=== PATIENT | female | born 1980 | race Caucasian/White ===

== ENCOUNTER 2017-05-12 10:52 | Inpatient (IN) | payer OTHER ==
[2017-05-12] MEDS ORDERED: NORMOSOL-R PH 7.4 1,000 ML IV SCH ×2 (12:00→15:00)
[2017-05-12] MEDS ORDERED: PITOCin/NS 30 UNIT/500ML 30 UNITS/500 ML BAG IV SCH ×2 (12:00→15:00)
[2017-05-12 13:01] LABS: Basophils % (Auto) 0.3 % (0.0-1.8); Eosinophils # (Auto) 0.1 K/mm3 (0.0-0.4); Eosinophils % (Auto) 0.5 % (0.0-4.3); Hematocrit 33.2 % (30.3-42.9); Hemoglobin 10.8 gm/dl (10.1-14.3); Lymphocytes # (Auto) 1.3 K/mm3 (1.2-5.4); Lymphocytes % (Auto) 11.9 % (13.4-35.0); Mean Corpuscular HGB Conc 33 % (30-34); Mean Corpuscular Hemoglobin 32 pg (28-32); Mean Corpuscular Volume 99 fl (79-97); Monocytes # (Auto) 0.6 K/mm3 (0.0-0.8); Monocytes % (Auto) 5.7 % (0.0-7.3); Platelet Count 178 K/mm3 (140-440); Red Blood Count 3.35 M/mm3 (3.65-5.03); Red Cell Distribution Width 15.1 % (13.2-15.2)
[2017-05-12] MEDS ORDERED: PITOCin/NS 20 UNIT/1000ML DRIP 20,000 MILLIUNITS/1,000 ML BAG IV ONE (13:18)
[2017-05-12] MEDS: STADOL IV PRN ×2 (13:26→15:32)
[2017-05-12] MEDS ORDERED: BRETHINE SUB-Q PRN (14:52)
[2017-05-12] MEDS ORDERED: XYLOCAINE 2% INFILTRATI ONE (14:52)
[2017-05-12] MEDS ORDERED: MINERAL OIL PO PRN (14:52)
[2017-05-12] MEDS ORDERED: BRETHINE IVP PRN (14:52)
--- NOTE | 2017-05-12 14:59 | History and Physical Report ---
History of Present Illness Date of examination: 05/12/17 Date of admission: 05/12/17 12:53 Chief complaint: Intense labor Pains History of present illness: Early entry to care at [facility], RH Negative; Receoved Rhogmaritza on 03/10/2017. course also complicated by Asymptomatic Anemia, taking FeSO4. Past History Past Medical History: no pertinent history Past Surgical History: no surgical history Family/Genetic History: none Social history: no significant social history - Obstetrical History Expected Date of Delivery: 05/23/17 Actual Gestation: 38 Week(s) 3 Day(s) : 6 Para: 5 Hx # Term Pregnancies: 5 Number of Living Children: 5 #1 Infant Gender: Female year: 1,[birth year] Birthweight: 2.722 kg Method of Delivery: Vaginal Gestational age at delivery: 40 Complications: none #2 Gender: Male year: 1,[birth year] Birthweight: 3.175 kg Method of Delivery: Vaginal Gestational age at delivery: 40 #3 Infant Gender: Male year: 2,[birth year] Birthweight: 3.827 kg Method of Delivery: Vaginal Gestational age at delivery: 40 Complications: none #4 Gender: Male year: 2,[birth year] Birthweight: 3.175 kg Method of Delivery: Vaginal Gestational age at delivery: 40 Complications: none #5 Gender: Male year: 2,011 Birthweight: 3.629 kg Method of Delivery: Vaginal Gestational age at delivery: 40 Complications: none Medications and Allergies Allergies Allergy/AdvReac Type Severity Reaction Status Date / Time No Known Allergies Allergy Unverified 05/12/17 11:37 Home Medications Medication Instructions Recorded Confirmed Last Taken Type No Known Home Medications [No 05/12/17 05/12/17 Unknown History Reported Home Medications] Active Meds: Active Medications Butorphanol Tartrate (Stadol) 2 mg IV Q2H PRN PRN Reason: Labor Pain Last Admin: 05/12/17 13:26 Dose: 2 mg Parenteral Electrolytes (Normosol-R Ph 7.4) 1,000 mls @ 125 mls/hr IV DIRECT DONOVAN Last Admin: 05/12/17 13:26 Dose: 125 mls/hr Oxytocin/Sodium Chloride (Pitocin/Ns 30 Unit/500ml) 30 units in 500 mls @ 4 mls /hr IV TITR DONOVAN; Protocol Last Titration: 05/12/17 14:35 Dose: 8 milliunits/min, 8 mls/hr Parenteral Electrolytes (Normosol-R Ph 7.4) 1,000 mls @ 125 mls/hr IV DIRECT DONOVAN Oxytocin/Sodium Chloride (Pitocin/Ns 30 Unit/500ml) 30 units in 500 mls @ 1 mls /hr IV TITR DONOVAN; Protocol Lidocaine (Xylocaine 2%) 20 ml INFILTRATI ONCE ONE Stop: 05/12/17 14:53 Mineral Oil (Mineral Oil) 30 ml PO QHS PRN PRN Reason: Constipation Terbutaline Sulfate (Brethine) 0.25 mg SUB-Q ONCE PRN PRN Reason: Hyperstimulation/Hypertonicity Terbutaline Sulfate (Brethine) 0.25 mg IVP ONCE PRN PRN Reason: Hyperstimulation/Hypertonicity Review of Systems All systems: negative - Vital Signs Vital signs: Vital Signs Pulse BP 85 102/66 05/12/17 11:15 05/12/17 11:15 Temp Pulse Resp BP Pulse Ox 100 H 109/57 05/12/17 14:40 05/12/17 14:40 - Physical Exam Breasts: Positive: normal Cardiovascular: Regular rate Lungs: Positive: Clear to auscultation, Normal air movement Abdomen: Positive: normal appearance, soft, normal bowel sounds Genitourinary (Female): Positive: normal external genitalia, normal perenium Vagina: Positive: normal moisture Uterus: Positive: enlarged Anus/Rectum: Positive: normal perianal skin Extremities: Positive: normal - Obstetrical FHR: category 1 Uterine Contraction Monitor Mode: External Cervical Dilatation: 5 (Scant amount of bloody fluid upon AROM at 1446) Cervical Effacement Percentage: 70 station: -1 Uterine Contraction Pattern: Regular Uterine Tone Measurement Phase: Resting Uterine Contraction Intensity: Moderate Results Result Diagrams: 05/12/17 11:55 Abnormal lab results 05/12/17 Range/Units 11:55 WBC 11.2 H (4.5-11.0) K/mm3 RBC 3.35 L (3.65-5.03) M/mm3 MCV 99 H (79-97) fl Lymph % (Auto) 11.9 L (13.4-35.0) % Seg Neutrophils % 81.6 H (40.0-70.0) % Seg Neutrophils # 9.1 H (1.8-7.7) K/mm3 All other labs normal. Assessment and Plan A: IUP @38 3/7 Weeks Active Labor Category I Tracing GBS Negative P: Admit to L&D per Routine Orders Pitocin Augmentation AROM
[2017-05-12] MEDS ORDERED: METHERGINE IM ONE (16:17)
[2017-05-12] MEDS ORDERED: CYTOTEC ONE (16:18)
[2017-05-12] MEDS ORDERED: LANSINOH TP PRN (16:34)
[2017-05-12] MEDS ORDERED: MILK OF MAGNESIA PO PRN (16:34)
[2017-05-12] MEDS ORDERED: PHENERGAN PR PRN (16:34)
[2017-05-12] MEDS ORDERED: TUCKS PAD TP PRN (16:34)
--- NOTE | 2017-05-12 16:48 | Procedure Note ---
OB Delivery Note - Delivery Date of Delivery: 05/12/17 (1616) Surgeon: BAMBI SANCHEZ Estimated blood loss: 500cc - Vaginal Delivery presentation: vertex Delivery position: OA Intrapartum events: precipitous labor- <3hr, hemorrhage Delivery induction: none Delivery augmentation: rupture of membranes, pitocin Delivery monitor: external FHT, external uterine Route of delivery: Delivery placenta: spontaneous Delivery cord: 3 umbilical vessels Episiotomy: none Delivery laceration: none Anesthesia: none Delivery comments: Precipitous vaginal delivery attended by Inés Price RN, of a live 8'10 female infant over a intact perinuem under IV pain control with Apgars of 8 and 9 at 1616 on 05/12/2017. directly to maternal abd/chest, skin to skin contact. Immediately after delivery prior to delivery of placenta a huge amount of uterine bleeding pooling in the bed and pouring onto the floor. Delayed cord clamping and cutting; Cord cut by the Father of the Baby. Pitocin ran wide open, Methergine 0.2mg given IM, and Cytotec 1000mcg placed rectally. Spontaneous delivery of placenta complete and intact with Norris side presenting at 1626. Vigorous external uterine massage; Uterine bleeding became scant. Cord blood collected; placenta discarded. - Infant A at 1 minute: 8 at 5 minutes: 9 Infant Gender: Female (8'10)
[2017-05-12] MEDS ORDERED: SODIUM CHLORIDE FLUSH SYRINGE 10 ML IV NR (17:00)
[2017-05-12] MEDS ORDERED: INFED IM ONE (18:00)
[2017-05-12] MEDS: FEOSOL PO SCH (21:01)
[2017-05-12] MEDS: NORCO 5/325 PO PRN (21:01)
[2017-05-12] MEDS ORDERED: TYLENOL PO ONE (21:57)
[2017-05-12 22:21] LABS: Basophils % (Auto) 0.2 % (0.0-1.8); Hematocrit 35.8 % (30.3-42.9); Lymphocytes % (Auto) 8.5 % (13.4-35.0); Mean Corpuscular HGB Conc 33 % (30-34); Mean Corpuscular Hemoglobin 33 pg (28-32); Mean Corpuscular Volume 98 fl (79-97); Monocytes # (Auto) 0.6 K/mm3 (0.0-0.8); Monocytes % (Auto) 5.4 % (0.0-7.3); Platelet Count 175 K/mm3 (140-440); Red Blood Count 3.65 M/mm3 (3.65-5.03); Red Cell Distribution Width 14.6 % (13.2-15.2)
[2017-05-12 22:35] LABS: Bacteria,Urine 2+ /HPF (Negative); Bilirubin,Urine NEG (Negative); Blood,Urine LG (Negative); Color,Urine Yellow (Yellow); Mucus,Urine 1+ /HPF; RBC,Urine > 182.0 /HPF (0.0-6.0); Urobilinogen,Urine < 2.0 mg/dL (<2.0); WBC,Urine > 182.0 /HPF (0.0-6.0)
[2017-05-12] MEDS ORDERED: ceFAZolin 2 GM in NACL 0.9% 100 ML IV ONE (23:03)
[2017-05-13] MEDS: ceFAZolin 2 GM in NACL 0.9% 20 ML IV ONE ×2 (01:00→02:19)
[2017-05-13] MEDS: MOTRIN PO SCH ×6 (02:01→23:00)
[2017-05-13] MEDS: NACL 0.9% 1000 ML 1,000 ML IV SCH ×3 (02:19→15:16)
[2017-05-13 05:23] LABS: Hematocrit 32.9 % (30.3-42.9); Hemoglobin 11.3 gm/dl (10.1-14.3)
[2017-05-13] MEDS ORDERED: TYLENOL PO ONE (06:00)
[2017-05-13] MEDS ORDERED: ANCEF/NS 1 GM/50 ML 1 GM/50 ML BAG IV SCH (06:00)
[2017-05-13] MEDS ORDERED: ceFAZolin 1 GM in NACL 0.9% 20 ML IV SCH ×2 (06:00→09:00)
[2017-05-13] MEDS: FEOSOL PO SCH ×3 (08:56→21:00)
--- NOTE | 2017-05-13 09:33 | Progress Note ---
Assessment and Plan A: Day 1 UTI, blood cultures pending Febrile this a.m., Ancef administered Hypotension at last BP check, patient stable P: Routine orders Continue antibiotics as ordered IV NS fluid bolus 300ml once Subjective - Subjective Date of service: 05/13/17 Principal diagnosis: Spontaneous labor Interval history: , PPH, UTI Patient reports: appetite normal, voiding normally, pain well controlled, flatus , ambulating normally : doing well, bottle feeding (Female 8 lbs 10 oz) Objective - Vital Signs Latest vital signs: Vital Signs Temp Pulse Resp BP BP Pulse Ox 05/13/17 08:30 98.4 F 84 18 82/50 95 05/13/17 05:35 73 18 98/64 96 05/13/17 05:33 99.6 F 05/13/17 02:00 101.2 F H 05/13/17 01:00 99.2 F 78 18 101/60 97 05/12/17 20:50 101.6 F H 86 18 118/69 96 05/12/17 18:10 99.8 F H 85 18 112/82 05/12/17 17:56 89 118/56 05/12/17 17:41 86 144/67 05/12/17 17:37 85 130/60 05/12/17 17:26 83 147/66 05/12/17 17:11 88 150/69 05/12/17 17:04 109 H 186/78 05/12/17 17:03 110 H 169/68 05/12/17 16:41 83 114/60 05/12/17 16:10 96 H 110/58 05/12/17 15:41 85 114/63 05/12/17 15:11 83 104/52 05/12/17 14:40 100 H 109/57 05/12/17 14:11 99 H 102/57 05/12/17 11:15 85 102/66 Intake and Output 05/12/17 05/13/17 05/13/17 23:59 07:59 15:59 Intake Total 120 240 897.917 Output Total 300 200 500 Balance -180 40 397.917 Intake: IV 897.917 NaCl 0.9% 1000 ml 1,000 897.917 ml @ 125 mls/hr IV DIRECT DONOVAN Rx#:[id number] Oral 120 240 Output: Urine 300 200 500 Void 300 200 500 Other: Total, Intake Amount 120 120 Total, Output Amount 300 200 500 # Voids Void 1 Estimated Blood Loss 500 - Exam Breasts: Present: deferred Cardiovascular: Present: Regular rate Lungs: Present: Clear to auscultation Abdomen: Present: normal appearance, soft, normal bowel sounds Vulva: both: normal Uterus: Present: normal, firm, fundal height at umbilicus Extremities: Present: normal Deep Tendon Reflex Grade: Normal +2 - Labs Labs: Abnormal lab results 05/12/17 05/12/17 05/12/17 Range/Units 11:55 22:10 22:12 WBC 11.2 H 11.5 H (4.5-11.0) K/mm3 RBC 3.35 L (3.65-5.03) M/mm3 MCV 99 H 98 H (79-97) fl MCH 33 H (28-32) pg Lymph % (Auto) 11.9 L 8.5 L (13.4-35.0) % Lymph # 1.0 L (1.2-5.4) K/mm3 Seg Neutrophils % 81.6 H 85.9 H (40.0-70.0) % Seg Neutrophils # 9.1 H 9.9 H (1.8-7.7) K/mm3 Urine WBC (Auto) > 182.0 H (0.0-6.0) /HPF
[2017-05-13] MEDS ORDERED: INFED IM ONE (10:00)
[2017-05-13] MEDS ORDERED: NACL 0.9% IV ONE (10:00)
[2017-05-13] MEDS: PRENATAL VITAMIN PO SCH (12:18)
--- NOTE | 2017-05-13 15:20 | Event Note ---
Date: 05/13/17 Called to see patient with positive blood culture. Essential history patient status post vaginal delivery on 05/12/2017, was noted to have temp spike yesterday and early this morning. Blood culture positive for gram-negative rods in 1 bottle, other was negative. Urine culture unavailable at this time but urinalysis does show large WBC and leukocyte esterase. Plan is to discontinue Ancef and start Rocephin, repeat blood culture tomorrow. Spoke with Dr. Jurado infectious disease, she will see patient tomorrow.
[2017-05-13] MEDS ORDERED: ROCEPHIN/NS 2 GM/100 ML 2 GM/100 ML BAG IV SCH (16:00)
[2017-05-13] MEDS: cefTRIAXone 2 GM in NACL 0.9% 20 ML IV SCH (17:53)
[2017-05-14] MEDS: MOTRIN PO SCH ×4 (02:14→17:25)
[2017-05-14] MEDS: NORCO 5/325 PO PRN (02:14)
[2017-05-14] MEDS: NACL 0.9% 1000 ML 1,000 ML IV SCH (05:43)
[2017-05-14 08:15] LABS: Basophils % (Auto) 0.1 % (0.0-1.8); Eosinophils # (Auto) 0.2 K/mm3 (0.0-0.4); Eosinophils % (Auto) 1.6 % (0.0-4.3); Hematocrit 30.4 % (30.3-42.9); Hemoglobin 10.2 gm/dl (10.1-14.3); Lymphocytes # (Auto) 1.4 K/mm3 (1.2-5.4); Lymphocytes % (Auto) 9.9 % (13.4-35.0); Mean Corpuscular HGB Conc 34 % (30-34); Mean Corpuscular Hemoglobin 33 pg (28-32); Mean Corpuscular Volume 98 fl (79-97); Monocytes # (Auto) 0.7 K/mm3 (0.0-0.8); Monocytes % (Auto) 4.8 % (0.0-7.3); Platelet Count 148 K/mm3 (140-440); Red Cell Distribution Width 15.3 % (13.2-15.2)
[2017-05-14] MEDS: PRENATAL VITAMIN PO SCH (10:05)
[2017-05-14] MEDS: FEOSOL PO SCH (10:05)
--- NOTE | 2017-05-14 11:57 | Progress Note ---
Assessment and Plan PPD# 2 s/p Cystitis Positive Blood culture (?Bacteremia) P: -Await repeat blood culture results -Continue present care -Possible discharge if blood culture results negative - Patient Problems (1) (normal spontaneous vaginal delivery) Current Visit: Yes Status: Acute (2) Cystitis Current Visit: Yes Status: Acute Subjective - Subjective Date of service: 05/14/17 Principal diagnosis: PPD# 2, Interval history: Patient seen and examined, stable doing well. Has been afebrile ~ 24 hours. Blood and urine cultures both positive for gram-negative rods, suspected blood is a contaminant. Patient reports: appetite normal, voiding normally, pain well controlled, flatus , ambulating normally, no dizzy ambulation, no nauseated : doing well Objective - Vital Signs Latest vital signs: Vital Signs Temp Pulse Resp BP Pulse Ox 05/14/17 08:31 98.0 F 71 18 95/61 97 05/14/17 00:42 98.5 F 72 18 95/59 05/13/17 12:12 97.7 F 72 18 86/52 95 Intake and Output 05/13/17 05/14/17 05/14/17 23:59 07:59 15:59 Intake Total 1480 120 Balance 1480 120 Intake: IV 1000 NaCl 0.9% 1000 ml 1,000 1000 ml @ 125 mls/hr IV DIRECT DONOVAN Rx#:[id number] Intake, Free Water 480 120 Other: # Voids Void 1 1 - Exam Abdomen: Present: normal appearance, soft, other (no CVA tenderness). Absent: distention, tenderness, guarding, rigidity Uterus: Present: firm, fundal height below umbilicus Extremities: Present: normal - Labs Labs: Abnormal lab results 05/14/17 Range/Units 07:55 WBC 14.1 H (4.5-11.0) K/mm3 RBC 3.10 L (3.65-5.03) M/mm3 MCV 98 H (79-97) fl MCH 33 H (28-32) pg RDW 15.3 H (13.2-15.2) % Lymph % (Auto) 9.9 L (13.4-35.0) % Seg Neutrophils % 83.6 H (40.0-70.0) % Seg Neutrophils # 11.8 H (1.8-7.7) K/mm3
[2017-05-14] MEDS: cefTRIAXone 2 GM in NACL 0.9% 20 ML IV SCH (18:02)
[2017-05-15] MEDS: NACL 0.9% 1000 ML 1,000 ML IV SCH (05:15)
[2017-05-15] MEDS: NORCO 5/325 PO PRN (05:15)
[2017-05-15] MEDS: MOTRIN PO SCH ×3 (05:15→17:26)
--- NOTE | 2017-05-15 09:24 | Progress Note ---
Assessment and Plan PPD# 3 s/p Cystitis Positive Blood culture (?Bacteremia) P: -Will discharge home after 7 PM today if remains afebrile and repeat blood culture negative -She should continue Keflex on discharge -Follow up in clinic -Continue present care - Patient Problems (1) (normal spontaneous vaginal delivery) Current Visit: Yes Status: Acute (2) Cystitis Current Visit: Yes Status: Acute Subjective - Subjective Date of service: 05/15/17 Principal diagnosis: PPD# 3, UTI, Positive blood culture Interval history: Patient seen and examined, stable doing well. Had temp increase to 100.9 @ ~ 18: 30 yesterday. Urine culture pos for E coil sensitive to 3rd generation cephalosporins. Patient reports: appetite normal, voiding normally, pain well controlled, flatus , bowel movement, ambulating normally, no dizzy ambulation, no nauseated : doing well Objective - Vital Signs Latest vital signs: Vital Signs Temp Pulse Resp BP Pulse Ox 05/15/17 00:40 99 F 70 20 107/66 05/14/17 18:37 100.9 F H 90 18 125/74 97 Intake and Output 05/14/17 05/15/17 05/15/17 23:59 07:59 15:59 Intake Total 600 120 Balance 600 120 Intake: Intake, Free Water 600 120 Other: # Voids Void 1 1 - Exam Abdomen: Present: normal appearance, soft. Absent: distention, tenderness, guarding, rigidity Uterus: Present: firm, fundal height below umbilicus
--- NOTE | 2017-05-15 09:28 | Discharge Summary ---
Providers - Providers Date of Admission: 05/12/17 12:53 Date of discharge: 05/15/17 Attending physician: ZAK BAUER MD 05/13/17 15:13 Consult to Physician [CONS] Routine Comment: Consulting Provider: ABDI PELAEZ Physician Instructions: Reason For Exam: positive blood culture with temp spike Primary care physician: AZK BAUER MD Hospitalization Reason for admission: active labor, IUP at term Delivery: Episiotomy: none Laceration: none Other procedures: none complications: UTI Discharge diagnosis: IUP at term delivered, other (urinary tract infection) baby: female Hospital course: Hospital course complicated by temperature spikes with positive blood and urine culture. Cultures show Escherichia coli sensitive to 3rd generation cephalosporin. Positive blood culture most likely contaminant from urine. She is discharged home in stable condition after being afebrile 24 hours on Keflex Condition at discharge: Good Disposition: DC-01 TO HOME OR SELFCARE - Discharge Diagnoses (1) (normal spontaneous vaginal delivery) Status: Acute (2) Cystitis Status: Acute Plan - Discharge Medications Prescriptions: Cephalexin [Keflex] 500 mg PO Q12HR #14 cap - Provider Discharge Summary Activity: no sex for 6 weeks, no heavy lifting 4 weeks, no strenuous exercise Diet: routine Additional instructions: [] Smoking cessation referral if applicable(refer to patient education folder for contact #) [] Refer to [facility]'s [facility] Booklet Call your doctor immediately for: * Fever > 100.5 * Heavy vaginal bleeding ( >1 pad per hour) * Severe persistent headache * Shortness of breath * Reddened, hot, painful area to leg or breast * Drainage or odor from incision. * Keep incision clean and dry at all times and follow doctor's instructions regarding bathing/showering - Follow up plan Follow up: ZAK BAUER MD [Primary Care Provider] - 7 Days
[2017-05-15] MEDS: FEOSOL PO SCH ×2 (11:34→15:00)
[2017-05-15] MEDS: PRENATAL VITAMIN PO SCH (11:36)
[2017-05-15 17:42] VITALS: BP 142/81
== END 2017-05-15 18:39 | disposition home or self-care (01) | DRG 774 ==
LOC: TRG 10:52 → LD 12:53 → OB 18:13
PROVIDERS: ADMIT Obstetrics & Gynecology; ATTEND Obstetrics & Gynecology
PROC: 10E0XZZ Delivery of Products of Conception, External Approach (ICD-10-PCS; principal; 2017-05-12)
PROC: 30233S1 Transfusion of Nonautologous Globulin into Peripheral Vein, Percutaneous Approach (ICD-10-PCS; 2017-05-13)
DX: O62.3 Precipitate labor (principal); O72.1 Other immediate postpartum hemorrhage; O86.22 Infection of bladder following delivery; Z37.0 Single live birth; B96.20 Unspecified Escherichia coli [E. coli] as the cause of diseases classified elsewhere; Z3A.38 38 weeks gestation of pregnancy
CPT/HCPCS: 36415; 81001; 85014; 85018; 85025; 85461; 86592; 86850; 86900; 86901; 87040; 87076; 87086; 87186; J0595; J0690; J0696; J1750; J2210; J2590; J2790; J7030